=== PATIENT | male | born 1965 | race Caucasian/White ===

== ENCOUNTER 2020-10-19 18:36 | Emergency (ER) | payer OTHER, MEDICAID, SELFPAY ==
[2020-10-19 18:51] VITALS: BP 142/80; PULSE 100; RESP 16; TEMP 35.9; O2SAT 96; BMI 33.9
[2020-10-19 20:09] LABS: Bacteria Urine None Seen; RBC Urine None Seen (0-5/HPF); WBC Urine None Seen (0-5/HPF)
[2020-10-19 20:11] LABS: Appearance Urine UA CLEAR; Bilirubin Urine UA NEGATIVE (NEGATIVE); Color Urine UA YELLOW; Glucose Urine UA NEGATIVE (Negative); Ketones Urine UA NEGATIVE (NEGATIVE); Leukocyte Esterase Urine UA NEGATIVE (NEGATIVE); Nitrite Urine UA NEGATIVE (Negative); Occult Blood Urine UA TRACE-LYSED (Negative); Protein Urine UA NEGATIVE (Negative); Specific Gravity Urine UA 1.025 (1.000-1.035); Urobilinogen Urine UA 0.2 E.U./dL (0.2)
[2020-10-19 20:12] LABS: Add Manual Diff / Slide Review NO; Basophils Absolute Auto 100 /uL (0-100); Basophils Percent Auto 0.6 % (0-2); Eosinophils Absolute Auto 200 /uL (0-450); Eosinophils Percent Auto 1.7 % (2-4); Hematocrit 43.3 % (41-53); Hemoglobin 15.2 g/dL (13.5-17.5); Lymphocytes Absolute Auto 3000 /uL (1100-4500); Lymphocytes Percent Auto 30.2 % (25-40); Mean Corpuscular HGB Conc 35.2 % (30-36); Mean Corpuscular Hemoglobin 30.6 PG (26-34); Monocytes Absolute Auto 700 /uL (0-900); Monocytes Percent Auto 6.8 % (3-14); Neutrophils Absolute Auto 6100 /uL (1500-7000); Neutrophils Percent Auto 60.7 % (50-75); Platelet Count 215 X10^3/uL (150-400); Red Blood Cell Count 4.98 X10^6/uL (4.5-5.9); Red Cell Distribution Width 13.4 % (11.6-14.8); White Blood Cell Count 10.1 X10^3/uL (4.5-11.0)
--- NOTE | 2020-10-19 20:12 | ED.PSYCH ---
HPI - Psych General Chief Complaint: Psychiatric Symptoms Stated Complaint: Mental health crisis Time Seen by Provider: 10/19/20 20:03 History of Present Illness HPI Narrative: Patient here voluntarily for suicide ideation and depression. I saw patient in the past 2 weeks for same complaint. I saw him at [facility] for suicide ideation depression. At that time he had argument with his girlfriend and he left their home. Since then he has been homeless. He was sent from [facility] to [facility]. He stated few days and was discharged. He decided to come here to find possible living accommodations but there are none for him he states. He does have mental health outpatient care in [place] once a month. He has no specific plan to hurt himself. Otherwise no recent illness. Review of Systems Review of Systems Narrative: GENERAL: Denies chills, fatigue, malaise, fever, sweats. HEENT: Denies sinus pain, ear pain, sore throat RESPIRATORY: Denies dyspnea, cough CARDIOVASCULAR: Denies chest pain, palpitations GASTROINTESTINAL: Denies nausea, vomiting, abdominal pain : Denies dysuria, frequency, hematuria MUSCULOSKELETAL: denies muscle or bony pain SKIN: Denies rash, skin lesions NEUROLOGIC: Denies weakness, numbness PSYCH: Complaints of anxiety/depression and SI. No HI ROS Unobtainable: All systems reviewed & are unremarkable except as noted in HPI and below Patient History tobacco type: smokeless tobacco Substance Use Type: does not use Exam Narrative Exam Narrative: GENERAL: in no distress, not toxic not dyspneic HEAD: Normocephalic. EYES: Pupils equal round No scleral icterus. No injection no discharge ENT: Mucous membranes moist. NECK: Trachea midline. CARDIOVASCULAR: Regular rate and rhythm without murmurs RESPIRATORY: Clear to auscultation. Breath sounds equal bilaterally. No wheezes, rales, or rhonchi. GASTROINTESTINAL: Abdomen soft, non-tender EXTREMITIES: No gross deformities. BACK: No flank tenderness. NEURO: AOx4. SKIN: Warm and dry PSYCH: Moderatelyanxious, is cooperative, has SI but no plan. No HI. No hallucinations. Slightly depressed. No pressured speech. Has slight flat affect Initial Vital Signs Initial Vital Signs: Vital Signs Temperature 96.6 F L 10/19/20 18:51 Pulse Rate 100 H 10/19/20 18:51 Respiratory Rate 16 10/19/20 18:51 Blood Pressure 142/80 H 10/19/20 18:51 Pulse Oximetry 96 10/19/20 18:51 Course Course Course Narrative: 2:42 a.m.. No new issues. Patient resting comfortably. Still waiting call back from [facility] for acceptance Orders Ordered: ED Orders 10/19/20 18:49 Acetaminophen Stat Complete Blood Count AUTO DIFF Stat Comprehensive Metabolic Panel Stat Ethanol (ETOH) Stat Free T4, Direct Thyroxine Stat Salicylate Stat Thyroid Stimulating Hormone Stat Urinalysis and Microscopic Stat Urine Drug Screen, Rapid Stat 10/19/20 19:33 COVID19 - ADMIT (DATE NIGHT SITTER swab/PCR) Stat Reevaluation(s) Reevaluation #1: Spoke with patient regarding response from [facility]. At this time he feels much better and has no suicidal ideations. Less anxious. He does desire discharge Time: 06:08 Reevaluation #2: [facility] has responded to our request and inform us that he does not qualify for inpatient care but can follow-up as outpatient. Patient already does have outpatient care. Time: 05:46 Vital Signs Vital signs: Vital Signs - 8 hr 10/19/20 18:51 Temperature 96.6 F L Pulse Rate 100 H Respiratory Rate 16 Blood Pressure 142/80 H Pulse Oximetry 96 MDM - Psych Differential Diagnosis Differential diagnosis: Likely suicidal ideation, depression and acute anxiety Lab Data Result diagrams: 10/19/20 18:49 10/19/20 18:49 Labs: Lab Results 10/19/20 10/19/20 10/19/20 Range/Units 18:49 18:49 18:49 WBC 10.1 (4.5-11.0) X10^3/uL RBC 4.98 (4.5-5.9) X10^6/uL Hgb 15.2 (13.5-17.5) g/dL Hct 43.3 (41-53) % MCV 87.0 (80-100) fL MCH 30.6 (26-34) PG MCHC 35.2 (30-36) % RDW 13.4 (11.6-14.8) % Plt Count 215 (150-400) X10^3/uL Neut % (Auto) 60.7 (50-75) % Lymph % (Auto) 30.2 (25-40) % Saline % (Auto) 6.8 (3-14) % Eos % (Auto) 1.7 L (2-4) % Baso % (Auto) 0.6 (0-2) % Neut # (Auto) 6100 (7295-9496) /uL Lymph # (Auto) 3000 (9336-7074) /uL Saline # (Auto) 700 (0-900) /uL Eos # (Auto) 200 (0-450) /uL Baso # (Auto) 100 (0-100) /uL Sodium 140 (137-145) mmol/L Potassium 3.5 (3.4-5.1) mmol/L Chloride 99 (98-107) mmol/L Carbon Dioxide 29 (22-32) mmol/L BUN 21 H (9-20) mg/dL Creatinine 1.23 (0.66-1.25) mg/dL Estimated GFR > 60.0 (>60) mL/min BUN/Creatinine Ratio 17.1 (6-22) Glucose 109 H (70-100) mg/dL Calcium 10.1 (8.4-10.2) mg/dL Total Bilirubin 0.8 (0.2-1.3) mg/dL AST 29 (17-59) IU/L ALT 18 (<50) IU/L Alkaline Phosphatase 63 (38-126) U/L Total Protein 9.0 H (6.3-8.2) g/dL Albumin 5.0 (3.5-5.0) g/dL Globulin 4.0 (1.7-4.1) g/dL Albumin/Globulin Ratio 1.3 (1.0-2.8) TSH 5.77 H (0.47-4.68) uIU/mL Free T4 1.07 (0.78-2.19) ng/dL Urine Color Urine Appearance Urine pH (4.5-8.0) Ur Specific Irving (1.000-1.035) Urine Protein (Negative) Urine Glucose (UA) (Negative) g/dL Urine Ketones (NEGATIVE) Urine Occult Blood (Negative) Urine Nitrate (Negative) Urine Bilirubin (NEGATIVE) Urine Urobilinogen (0.2) E.U./dL Ur Leukocyte Esterase (NEGATIVE) Urine RBC (0-5/HPF) Urine WBC (0-5/HPF) Amorphous Sediment Urine Bacteria (None) Ur Culture Indicated? Salicylates < 1.0 (<20) mg/dL U Opiates 300ng/mL cut (Negative) Ur Oxycodone Screen (Negative) Urine Methadone Screen (Negative) Acetaminophen < 10 L (10-30) ug/mL Ur Barbiturates Screen (Negative) U Tricyclic Antidepress (Negative) Ur Phencyclidine Scrn (Negative) Ur Amphetamines Screen (Negative) U Methamphetamines Scrn (Negative) Ur MDMA Scrn (Ecstasy) (Negative) U Benzodiazepines Scrn (Negative) Urine Cocaine Screen (Negative) U Marijuana (THC) Screen (Negative) Ethyl Alcohol < 10 ( - 10) mg/dL SARS-CoV-2 (PCR) (Negative) 10/19/20 10/19/20 10/19/20 Range/Units 18:49 18:49 19:33 WBC (4.5-11.0) X10^3/uL RBC (4.5-5.9) X10^6/uL Hgb (13.5-17.5) g/dL Hct (41-53) % MCV (80-100) fL MCH (26-34) PG MCHC (30-36) % RDW (11.6-14.8) % Plt Count (150-400) X10^3/uL Neut % (Auto) (50-75) % Lymph % (Auto) (25-40) % Saline % (Auto) (3-14) % Eos % (Auto) (2-4) % Baso % (Auto) (0-2) % Neut # (Auto) (5656-3173) /uL Lymph # (Auto) (5559-3068) /uL Saline # (Auto) (0-900) /uL Eos # (Auto) (0-450) /uL Baso # (Auto) (0-100) /uL Sodium (137-145) mmol/L Potassium (3.4-5.1) mmol/L Chloride (98-107) mmol/L Carbon Dioxide (22-32) mmol/L BUN (9-20) mg/dL Creatinine (0.66-1.25) mg/dL Estimated GFR (>60) mL/min BUN/Creatinine Ratio (6-22) Glucose (70-100) mg/dL Calcium (8.4-10.2) mg/dL Total Bilirubin (0.2-1.3) mg/dL AST (17-59) IU/L ALT (<50) IU/L Alkaline Phosphatase (38-126) U/L Total Protein (6.3-8.2) g/dL Albumin (3.5-5.0) g/dL Globulin (1.7-4.1) g/dL Albumin/Globulin Ratio (1.0-2.8) TSH (0.47-4.68) uIU/mL Free T4 (0.78-2.19) ng/dL Urine Color Yellow Urine Appearance Clear Urine pH 5.0 (4.5-8.0) Ur Specific Irving 1.025 (1.000-1.035) Urine Protein Negative (Negative) Urine Glucose (UA) Negative (Negative) g/dL Urine Ketones Negative (NEGATIVE) Urine Occult Blood Trace-lysed (Negative) Urine Nitrate Negative (Negative) Urine Bilirubin Negative (NEGATIVE) Urine Urobilinogen 0.2 (0.2) E.U./dL Ur Leukocyte Esterase Negative (NEGATIVE) Urine RBC None seen (0-5/HPF) Urine WBC None seen (0-5/HPF) Amorphous Sediment 2+ Urine Bacteria None seen (None) Ur Culture Indicated? Cult not indicated Salicylates (<20) mg/dL U Opiates 300ng/mL cut Negative (Negative) Ur Oxycodone Screen Negative (Negative) Urine Methadone Screen Negative (Negative) Acetaminophen (10-30) ug/mL Ur Barbiturates Screen Negative (Negative) U Tricyclic Antidepress Negative (Negative) Ur Phencyclidine Scrn Negative (Negative) Ur Amphetamines Screen Negative (Negative) U Methamphetamines Scrn Negative (Negative) Ur MDMA Scrn (Ecstasy) Negative (Negative) U Benzodiazepines Scrn Negative (Negative) Urine Cocaine Screen Negative (Negative) U Marijuana (THC) Screen Positive H (Negative) Ethyl Alcohol ( - 10) mg/dL SARS-CoV-2 (PCR) Negative (Negative) MDM Narrative Medical decision making narrative: Patient been evaluated by social Work as well as referred to [facility] but does not qualify for inpatient care. Patient has been cooperative during course of stay. Reviewed with patient response from behavioral health/[facility]. Patient no longer suicidal ideations. Feels much better after resting here. He does desire a patient care with [facility] [facility] [employer] [facility]. Phone number given to him to call. He does have a cellphone. Discharge Plan Departure Patient Disposition: Home Clinical Impression: Acute anxiety Activity Restrictions/Additional Instructions: Return if worsening questions or concerns. Call [facility] today for outpatient care. Their phone number is [phone]. Continue your home medications.
[2020-10-19 20:16] LABS: UR Morphine/Opiate cutoff 300 Negative (Negative); Ur Creatinine Normal (Normal); Ur Specific Gravity Normal (Normal); Urine Amphetamines Negative (Negative); Urine Barbiturates Negative (Negative); Urine Benzodiazepines Negative (Negative); Urine Cocaine Negative (Negative); Urine MDMA Negative (Negative); Urine Methadone Negative (Negative); Urine Methamphetamines Negative (Negative); Urine Oxycodone Negative (Negative); Urine Phencyclidine Negative (Negative); Urine Tetrahydrocannabinol Positive (Negative); Urine Tricyclic Antidepressant Negative (Negative); Urine pH Normal (Normal)
[2020-10-19 20:25] LABS: Amorphous Sediment Urine 2+; Culture Indicated Urine Cult Not Indicated
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
[2020-10-19 20:51] LABS: Acetaminophen < 10 ug/mL (10-30); Alanine Aminotransferase 18 IU/L (<50); Albumin Globulin Ratio 1.3 (1.0-2.8); Alkaline Phosphatase 63 U/L (38-126); Aspartate Aminotransferase 29 IU/L (17-59); BUN Creatinine Ratio 17.1 (6-22); Bilirubin Total 0.8 mg/dL (0.2-1.3); Blood Urea Nitrogen 21 mg/dL (9-20); Calcium 10.1 mg/dL (8.4-10.2); Carbon Dioxide 29 mmol/L (22-32); Chloride 99 mmol/L (98-107); Estimated Glomerular Filt Rate > 60.0 mL/min (>60); Ethanol (ETOH) < 10 mg/dL; Glucose 109 mg/dL (70-100); HEMOLYSIS < 15 (0-50); Potassium 3.5 mmol/L (3.4-5.1); Salicylate < 1.0 mg/dL (<20); Sodium 140 mmol/L (137-145)
[2020-10-19 21:23] LABS: Free T4, Direct Thyroxine 1.07 ng/dL (0.78-2.19)
[2020-10-19 21:31] LABS: COVID19 - ADMIT (NP swab/PCR) Negative (Negative)
[2020-10-19 21:36] LABS: Thyroid Stimulating Hormone 5.77 uIU/mL (0.47-4.68)
--- NOTE | 2020-10-20 03:26 | PC.NURSE ---
Called to check on pt's status to [facility]. Spoke with Karen who stated they needed the lab results. Faxed the lab results and am waiting for a reply
--- NOTE | 2020-10-20 05:26 | PC.NURSE ---
Received call from Darrick at [facility]. Pt declined at this time due to not meeting in patient criteria. states can have access to their out patient resources.
[2020-10-20 07:24] VITALS: BP 120/87; PULSE 78; RESP 16; O2SAT 98
== END 2020-10-20 07:25 | disposition home or self-care (01) ==
PROVIDERS: Emergency Provider Emergency Medicine; Family Provider Internal Medicine Nephrology
DX: R45.851 Suicidal ideations (principal); F41.9 Anxiety disorder, unspecified; F32.9 Major depressive disorder, single episode, unspecified; Z20.822 Contact with and (suspected) exposure to COVID-19
CPT/HCPCS: 36415; 80053; 80305; 80320; 80329; 81001; 84439; 84443; 85025; 87635; 99284; C9803; G0480

== ENCOUNTER 2021-08-25 15:20 | Emergency (ER) | payer MEDICARE, MEDICAID, SELFPAY ==
[2021-08-25 15:31] VITALS: BP 152/85; PULSE 86; RESP 18; TEMP 36.6; O2SAT 96; BMI 33.9
--- NOTE | 2021-08-25 15:50 | PC.NURSE ---
Patient belongings are in bags in the ER locked drawer including clothes, valuables, crocks shoes, hoodie, and backpack with locked zippers. Patient changed into green scrubs and in the room calm and cooperative.
[2021-08-25 16:19] LABS: Acetaminophen < 10 ug/mL (10-30); Alanine Aminotransferase 21 IU/L (<50); Albumin 4.7 g/dL (3.5-5.0); Albumin Globulin Ratio 1.1 (1.0-2.8); Alkaline Phosphatase 86 U/L (38-126); Aspartate Aminotransferase 55 IU/L (17-59); BUN Creatinine Ratio 15.1 (6-22); Bilirubin Total 1.4 mg/dL (0.2-1.3); Blood Urea Nitrogen 16 mg/dL (9-20); Calcium 9.5 mg/dL (8.4-10.2); Carbon Dioxide 27 mmol/L (22-32); Chloride 98 mmol/L (98-107); Estimated Glomerular Filt Rate > 60 mL/min (>60); Ethanol (ETOH) < 10 mg/dL; Globulin 4.1 g/dL (1.7-4.1); Glucose 99 mg/dL (70-100); HEMOLYSIS 41 (0-50); Potassium 3.6 mmol/L (3.4-5.1); Salicylate < 1.0 mg/dL (<20); Sodium 140 mmol/L (137-145); Total Protein 8.8 g/dL (6.3-8.2)
[2021-08-25 16:22] LABS: Add Manual Diff / Slide Review NO; Basophils Absolute Auto 100 /uL (0-100); Basophils Percent Auto 0.9 % (0-2); Eosinophils Absolute Auto 100 /uL (0-450); Eosinophils Percent Auto 0.7 % (2-4); Hematocrit 46.2 % (41-53); Lymphocytes Absolute Auto 2100 /uL (1100-4500); Lymphocytes Percent Auto 21.1 % (25-40); Mean Corpuscular HGB Conc 34.6 % (30-36); Mean Corpuscular Volume 86.6 fL (80-100); Monocytes Absolute Auto 500 /uL (0-900); Monocytes Percent Auto 5.3 % (3-14); Neutrophils Absolute Auto 7200 /uL (1500-7000); Platelet Count 268 X10^3/uL (150-400); Red Blood Cell Count 5.33 X10^6/uL (4.5-5.9); Red Cell Distribution Width 13.5 % (11.6-14.8); White Blood Cell Count 9.9 X10^3/uL (4.5-11.0)
--- NOTE | 2021-08-25 16:31 | PC.NURSE ---
Sitting and talking with social work supervisor.
[2021-08-25 16:50] LABS: COVID19 -Nasal RAPID Negative (Negative)
[2021-08-25 17:02] LABS: Thyroid Stimulating Hormone 3.26 uIU/mL (0.47-4.68)
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
[2021-08-25 17:26] LABS: Ur Creatinine Normal (Normal); Ur Specific Gravity Normal (Normal); Urine pH Normal (Normal)
[2021-08-25 17:27] LABS: UR Morphine/Opiate cutoff 300 Negative (Negative); Urine Amphetamines Negative (Negative); Urine Barbiturates Negative (Negative); Urine Benzodiazepines Positive (Negative); Urine Cocaine Negative (Negative); Urine Methamphetamines Positive (Negative); Urine Tetrahydrocannabinol Positive (Negative)
[2021-08-25 17:28] LABS: Urine MDMA Negative (Negative); Urine Methadone Negative (Negative); Urine Oxycodone Negative (Negative); Urine Phencyclidine Negative (Negative); Urine Tricyclic Antidepressant Negative (Negative)
--- NOTE | 2021-08-25 18:16 | PC.NURSE ---
Pt calm and lying down, speaking to
--- NOTE | 2021-08-25 18:19 | ED.PSYCH ---
HPI - Psych General Chief Complaint: Psychiatric Symptoms Stated Complaint: SI Time Seen by Provider: 08/25/21 18:03 Source: patient Mode of arrival: other (Police) Limitations: no limitations History of Present Illness HPI Narrative: 56-year-old male. History drug abuse and alcohol abuse also PTSD and depression. Receives his mental health medications by his primary doctor. Does not currently have a mental health professional that he sees on a regular basis. Was recently discharged from [facility] mental health facility. He states that he left on his own. He was there voluntarily after going to the emergency department for suicidal ideations. He stated that he left voluntarily because he was ?strapped down ?he said that they took his medications away from him and otherwise had a very poor experience although he went going to specific details. Today he was brought in by police after he was stating suicidal thoughts all in 1 of the local [place]. He is here voluntarily. He is seeking voluntary mental health treatment. He is asking for hydroxyzine to help him sleep and also calmed down. He denies any drug or alcohol abuse. Did smoke marijuana after his discharge earlier today and his arrival here to the emergency department. He has made specific statements about a plan to include jumping off a bridge or hitting himself in the head with a rock or drowning himself. Related Data Allergies Allergy/AdvReac Type Severity Reaction Status Date / Time No Known Drug Allergies Allergy Verified 08/25/21 18:35 Review of Systems Cardiovascular Comments: Denies chest pain Respiratory Comments: Denies shortness of breath Gastrointestinal Comments: Denies abdominal pain nausea vomiting Musculoskeletal Comments: , muscle or joint pain Psychiatric Psychiatric: Reports system reviewed and no additional complaints, except as documented Hematologic/Lymphatic On Anticoagulants: No Patient History Medical History Alcohol abuse Depression Drug abuse Personality disorder, unspecified PTSD (post-traumatic stress disorder) Suicidal ideation Social History Smoking Status: Current every day smoker Smoking Status: Current every day smoker tobacco type: smokeless tobacco Substance Use Type: does not use Exam Initial Vital Signs Initial Vital Signs: Vital Signs Temperature 97.9 F 08/25/21 15:31 Pulse Rate 86 08/25/21 15:31 Respiratory Rate 18 08/25/21 15:31 Blood Pressure 152/85 H 08/25/21 15:31 Pulse Oximetry 96 08/25/21 15:31 Oxygen Delivery Method 08/25/21 15:31 HENOH Head: normal to inspection and normocephalic Resp Effort & Inspection: normal respiratory effort Auscultation: clear to auscultation bilaterally Cardio Rate: regular rate Rhythm: regular rhythm GI Palpation: soft Percussion: normal to percussion Skin General: no rashes or lesions noted Neuro General: patient alert, patient awake, patient oriented x3 and moves all extremities Extrem General: normal to inspection and capillary refill normal Psych Other: Calm, cooperative, does endorse suicidal ideation. Flat affect. Scores GCS Kash coma scale eye opening: Spontaneous Kash coma scale verbal response: Orientated [place] coma scale motor response: Obey commands Kash coma scale total score: 15 Course Orders Ordered: Discontinued Medications Hydroxyzine Pamoate (Hydroxyzine Pamoate 25 Mg Capsule) 25 mg PO NOW ONE Stop: 08/25/21 18:20 Last Admin: 08/25/21 18:45 Dose: 25 mg Documented By: CHARLES Hydroxyzine Pamoate (Hydroxyzine Pamoate 25 Mg Capsule) 25 mg PO NOW ONE Stop: 08/26/21 02:22 Last Admin: 08/26/21 02:24 Dose: 25 mg Documented By: BIN Vital Signs Vital signs: Vital Signs - 8 hr 08/25/21 22:50 Temperature 97.7 F Pulse Rate 83 Respiratory Rate 18 Blood Pressure [Right Arm] 150/84 H Pulse Oximetry 97 Oxygen Delivery Method Room Air MDM - Psych Lab Data Attestation: I reviewed the patient's lab results. Result diagrams: 08/25/21 15:59 08/25/21 15:59 Labs: Lab Results 08/25/21 08/25/21 08/25/21 Range/Units 15:59 15:59 15:59 WBC 9.9 (4.5-11.0) X10^3/uL RBC 5.33 (4.5-5.9) X10^6/uL Hgb 16.0 (13.5-17.5) g/dL Hct 46.2 (41-53) % MCV 86.6 (80-100) fL MCH 30.0 (26-34) PG MCHC 34.6 (30-36) % RDW 13.5 (11.6-14.8) % Plt Count 268 (150-400) X10^3/uL Neut % (Auto) 72.0 (50-75) % Lymph % (Auto) 21.1 L (25-40) % [place] % (Auto) 5.3 (3-14) % Eos % (Auto) 0.7 L (2-4) % Baso % (Auto) 0.9 (0-2) % Neut # (Auto) 7200 H (5018-0880) /uL Lymph # (Auto) 2100 (8294-5609) /uL [place] # (Auto) 500 (0-900) /uL Eos # (Auto) 100 (0-450) /uL Baso # (Auto) 100 (0-100) /uL Sodium 140 (137-145) mmol/L Potassium 3.6 (3.4-5.1) mmol/L Chloride 98 (98-107) mmol/L Carbon Dioxide 27 (22-32) mmol/L BUN 16 (9-20) mg/dL Creatinine 1.06 (0.66-1.25) mg/dL Estimated GFR > 60 (>60) mL/min BUN/Creatinine Ratio 15.1 (6-22) Glucose 99 (70-100) mg/dL Calcium 9.5 (8.4-10.2) mg/dL Total Bilirubin 1.4 H (0.2-1.3) mg/dL AST 55 (17-59) IU/L ALT 21 (<50) IU/L Alkaline Phosphatase 86 (38-126) U/L Total Protein 8.8 H (6.3-8.2) g/dL Albumin 4.7 (3.5-5.0) g/dL Globulin 4.1 (1.7-4.1) g/dL Albumin/Globulin Ratio 1.1 (1.0-2.8) TSH 3.26 (0.47-4.68) uIU/mL Free T4 1.10 (0.78-2.19) ng/dL Salicylates < 1.0 (<20) mg/dL U Opiates 300ng/mL cut (Negative) Ur Oxycodone Screen (Negative) Urine Methadone Screen (Negative) Acetaminophen < 10 (10-30) ug/mL Ur Barbiturates Screen (Negative) U Tricyclic Antidepress (Negative) Ur Phencyclidine Scrn (Negative) Ur Amphetamines Screen (Negative) U Methamphetamines Scrn (Negative) Ur MDMA Scrn (Ecstasy) (Negative) U Benzodiazepines Scrn (Negative) Urine Cocaine Screen (Negative) U Marijuana (THC) Screen (Negative) Ethyl Alcohol < 10 ( - 10) mg/dL SARS-CoV-2 (PCR) (Negative) 08/25/21 08/25/21 Range/Units 16:11 16:48 WBC (4.5-11.0) X10^3/uL RBC (4.5-5.9) X10^6/uL Hgb (13.5-17.5) g/dL Hct (41-53) % MCV (80-100) fL MCH (26-34) PG MCHC (30-36) % RDW (11.6-14.8) % Plt Count (150-400) X10^3/uL Neut % (Auto) (50-75) % Lymph % (Auto) (25-40) % [place] % (Auto) (3-14) % Eos % (Auto) (2-4) % Baso % (Auto) (0-2) % Neut # (Auto) (2002-4168) /uL Lymph # (Auto) (8754-3082) /uL [place] # (Auto) (0-900) /uL Eos # (Auto) (0-450) /uL Baso # (Auto) (0-100) /uL Sodium (137-145) mmol/L Potassium (3.4-5.1) mmol/L Chloride (98-107) mmol/L Carbon Dioxide (22-32) mmol/L BUN (9-20) mg/dL Creatinine (0.66-1.25) mg/dL Estimated GFR (>60) mL/min BUN/Creatinine Ratio (6-22) Glucose (70-100) mg/dL Calcium (8.4-10.2) mg/dL Total Bilirubin (0.2-1.3) mg/dL AST (17-59) IU/L ALT (<50) IU/L Alkaline Phosphatase (38-126) U/L Total Protein (6.3-8.2) g/dL Albumin (3.5-5.0) g/dL Globulin (1.7-4.1) g/dL Albumin/Globulin Ratio (1.0-2.8) TSH (0.47-4.68) uIU/mL Free T4 (0.78-2.19) ng/dL Salicylates (<20) mg/dL U Opiates 300ng/mL cut Negative (Negative) Ur Oxycodone Screen Negative (Negative) Urine Methadone Screen Negative (Negative) Acetaminophen (10-30) ug/mL Ur Barbiturates Screen Negative (Negative) U Tricyclic Antidepress Negative (Negative) Ur Phencyclidine Scrn Negative (Negative) Ur Amphetamines Screen Negative (Negative) U Methamphetamines Scrn Positive H (Negative) Ur MDMA Scrn (Ecstasy) Negative (Negative) U Benzodiazepines Scrn Positive H (Negative) Urine Cocaine Screen Negative (Negative) U Marijuana (THC) Screen Positive H (Negative) Ethyl Alcohol ( - 10) mg/dL SARS-CoV-2 (PCR) Negative (Negative) Urine Dip Bedside Urine Glucose Negative Bedside Urine Bilirubin - Negative Bedside Urine Ketone - Negative Urine Specific [place] 1.025 Bedside Urine Occult Blood +/- Bedside Urine pH 6.0 Bedside Urine Protein + 30 Bedside Urine Urobilinogen - Negative Bedside Urine Nitrite - Negative Bedside Urine Leukocytes - Negative Esterase ECG Data Attestation: I personally reviewed and interpreted this ECG as follows: Prior ECG tracings: not available for review Interpretation: Sinus rhythm Ventricular rate 87 Normal axis Normal QRS Normal QTC No ST T wave changes MDM Narrative Medical decision making narrative: Patient is alert oriented x3. Not clinically intoxicated. Is here voluntarily. Endorses suicidal ideation. Has been admitted to the hospital in the past voluntarily. He is currently voluntary and would like placement for his symptoms. Afebrile. Patient is medically cleared. Social work has evaluated the patient. Voluntary placement found. Patient is stable for transport Discharge Plan Departure Patient Disposition: Xfer Psychiatric Hosp Clinical Impression: Suicidal ideation, Depression Referrals: Caro Richards PA-C [Primary Care Provider] -
[2021-08-25 18:26] VITALS: BP 132/87; PULSE 82; RESP 18; TEMP 37.1; O2SAT 97
[2021-08-25] MEDS: hydrOXYzine pamoate 25 MG CAPSULE PO (18:45)
--- NOTE | 2021-08-25 18:47 | CM.SWNOTE ---
Addendum entered by Laura Gleason 08/25/21 20:23: FACTORY MANAGER Note FACTORY MANAGER receives call from [facility] intake Chad who reports that patient has been accepted for tomorrow morning at 0730. Accepting provider is MARIYA Knight. [employer] to set up transportation for patient. FACTORY MANAGER reviews the above with patient who indicates agreement and understanding. Plan: Patient to transfer to [facility] tomorrow morning for voluntary BH inpatient bed. JOSE ROBERTO Haynes Original Note: FACTORY MANAGER Note FACTORY MANAGER calls [facility] for voluntary bed census, it is reported that [facility], [facility], [facility] have beds and that [facility] 1 [facility] (60 y/o +). FACTORY MANAGER calls [facility] intake and it is reported that they can review patient, FACTORY MANAGER faxes clinicals for review. FACTORY MANAGER calls [facility] and intake is not available to answer phone but bathhouse attendant recommends faxing clinicals, FACTORY MANAGER faxes clinicals for review. FACTORY MANAGER calls [facility] intake, it is reported that they have beds and can review patient, FACTORY MANAGER faxes clinicals for review. FACTORY MANAGER does not call [facility] due to patient's recent d/c from facility. Plan: FACTORY MANAGER to continue to seek voluntary BH inpatient bed for patient. JOSE ROBERTO Haynes
--- NOTE | 2021-08-25 20:00 | PC.NURSE ---
Addendum entered by Breanne Lyon CNA 08/26/21 03:22: ANIMAL SHELTER SUPERVISOR note: patient got up, went to sit inn chair, complained he was uncomfortable, tried to sleep in chair for a few minutes. Complained he wasn't comfortable again, and got back onto the mattress. Patient is listening to the audiobook on his phone for comfort. Addendum entered by Breanne Lyon CNA 08/26/21 01:35: ANIMAL SHELTER SUPERVISOR note: patient still laying on mattress, sleeping, listening to the audiobook on phone for comfort. Addendum entered by Breanne Lyon CNA 08/25/21 22:00: Patient is laying on mattress (which is on the floor), sleeping, listening to audiobook on phone for comfort. Addendum entered by Breanne Lyon CNA 08/25/21 20:31: ANIMAL SHELTER SUPERVISOR note: patient attempting to sleep, patient is rolling over frequently while trying to sleep, and listening to audiobook. Patient resting on his side. Original Note: SAUL note: patient is struggling to sleep, moved to the recliner, wasn't comfortable, wasn't comfortable in bed, and requested the mattress on the floor. Moved mattress onto floor and moved gurney out of room. Patient is visible to ANIMAL SHELTER SUPERVISOR, requested phone. Patient on mattress trying to rest.
[2021-08-25 22:50] VITALS: BP 150/84; PULSE 83; RESP 18; TEMP 36.5; O2SAT 97
[2021-08-26] MEDS: hydrOXYzine pamoate 25 MG CAPSULE PO (02:24)
[2021-08-26 05:20] VITALS: BP 148/92; PULSE 87; RESP 18; O2SAT 97
== END 2021-08-26 06:25 ==
PROVIDERS: Emergency Medicine; Emergency Provider Emergency Medicine; Family Provider Internal Medicine Nephrology; PCP Physician Assistant; Referring Provider Physician Assistant
DX: R45.851 Suicidal ideations (principal); F32.9 Major depressive disorder, single episode, unspecified; Z20.822 Contact with and (suspected) exposure to COVID-19; R03.0 Elevated blood-pressure reading, without diagnosis of hypertension
CPT/HCPCS: 36415; 80053; 80305; 80320; 80329; 81003; 84439; 84443; 85025; 87635; 93005; 93010; 99284; C9803; G0480

== ENCOUNTER 2021-10-24 19:56 | Emergency (ER) | payer MEDICARE, MEDICAID, SELFPAY ==
[2021-10-24 20:12] VITALS: BP 142/77; PULSE 92; RESP 17; TEMP 37.1; O2SAT 98
[2021-10-24 21:09] LABS: Add Manual Diff / Slide Review NO; Basophils Absolute Auto 100 /uL (0-100); Basophils Percent Auto 0.5 % (0-2); Eosinophils Absolute Auto 200 /uL (0-450); Hematocrit 46.3 % (41-53); Hemoglobin 16.4 g/dL (13.5-17.5); Lymphocytes Absolute Auto 3500 /uL (1100-4500); Lymphocytes Percent Auto 29.6 % (25-40); Mean Corpuscular HGB Conc 35.4 % (30-36); Mean Corpuscular Hemoglobin 30.4 PG (26-34); Mean Corpuscular Volume 85.9 fL (80-100); Monocytes Absolute Auto 900 /uL (0-900); Monocytes Percent Auto 7.2 % (3-14); Neutrophils Absolute Auto 7200 /uL (1500-7000); Neutrophils Percent Auto 60.7 % (50-75); Platelet Count 301 X10^3/uL (150-400); Red Blood Cell Count 5.39 X10^6/uL (4.5-5.9); Red Cell Distribution Width 13.4 % (11.6-14.8); White Blood Cell Count 11.9 X10^3/uL (4.5-11.0)
[2021-10-24 21:19] LABS: Acetaminophen < 10 ug/mL (10-30); Alanine Aminotransferase 17 IU/L (<50); Albumin 4.8 g/dL (3.5-5.0); Albumin Globulin Ratio 1.1 (1.0-2.8); Alkaline Phosphatase 74 U/L (38-126); Aspartate Aminotransferase 22 IU/L (17-59); BUN Creatinine Ratio 17.3 (6-22); Bilirubin Total 0.6 mg/dL (0.2-1.3); Blood Urea Nitrogen 22 mg/dL (9-20); Carbon Dioxide 27 mmol/L (22-32); Chloride 100 mmol/L (98-107); Estimated Glomerular Filt Rate > 60 mL/min (>60); Ethanol (ETOH) < 10 mg/dL; Globulin 4.4 g/dL (1.7-4.1); Glucose 130 mg/dL (70-100); Potassium 4.1 mmol/L (3.4-5.1); Salicylate < 1.0 mg/dL (<20); Sodium 141 mmol/L (137-145); Total Protein 9.2 g/dL (6.3-8.2)
[2021-10-24 21:28] LABS: RBC Urine None Seen (0-5/HPF); Squamous Epithelial Cell Urine 0-1 /HPF (0-5/HPF); WBC Urine 0-1/HPF (0-5/HPF)
[2021-10-24 21:29] LABS: Bacteria Urine None Seen; Culture Indicated Urine Cult Not Indicated; Hyaline Casts Urine 0-1/LPF
[2021-10-24 21:30] LABS: Ur Creatinine 20 (Normal); Ur Specific Gravity >1.025 (Normal); Urine pH 5 (Normal)
[2021-10-24 21:31] LABS: UR Morphine/Opiate cutoff 300 Negative (Negative); Urine Amphetamines Negative (Negative); Urine Barbiturates Negative (Negative); Urine Benzodiazepines Negative (Negative); Urine Cocaine Negative (Negative); Urine MDMA Negative (Negative); Urine Methadone Negative (Negative); Urine Methamphetamines Negative (Negative); Urine Oxycodone Negative (Negative); Urine Phencyclidine Negative (Negative); Urine Tetrahydrocannabinol Positive (Negative); Urine Tricyclic Antidepressant Negative (Negative)
[2021-10-24 21:37] LABS: Free T4, Direct Thyroxine 0.93 ng/dL (0.78-2.19)
--- NOTE | 2021-10-24 21:43 | ED_ITS ---
HPI - Psych General Chief Complaint: Psychiatric Symptoms Stated Complaint: SI Time Seen by Provider: 10/24/21 21:22 Source: patient Mode of arrival: Ambulatory Limitations: no limitations History of Present Illness HPI Narrative: Patient is a 56-year-old male. Does have a history of alcohol abuse drug abuse. Also has a history of anxiety depression and suicidal ideation. States he has been sober for several months now. Does take escitalopram that is prescribed by his primary doctor. Has been admitted to the hospital in the past for suicidal ideation most recent within the past several months. He does take hydroxyzine at night to help him sleep. He states that for the past couple days and especially today he had increasing thoughts of hurting himself. Has not tried to hurt himself. He arrived emergency department by himself voluntarily seeking inpatient treatment. He was not especially specific as to what caused the deterioration over the past couple days except that he states that he is rec ently finding out what other people ?were doing to me ?while he was doing drugs and alcohol. Related Data Home Medications Medication Instructions Recorded Confirmed amlodipine 10 mg tablet 10 mg PO DAILY 10/24/21 10/24/21 escitalopram oxalate 10 mg tablet 20 mg PO DAILY 10/24/21 10/24/21 hydroxyzine HCl 50 mg tablet 50 mg PO DAILY 10/24/21 10/24/21 Allergies Allergy/AdvReac Type Severity Reaction Status Date / Time No Known Drug Allergies Allergy Verified 10/24/21 20:23 Review of Systems Constitutional Constitutional: Denies fever(s) and Denies headache(s) ENT Ears, Nose, Mouth, and Throat: Denies headache(s) Cardiovascular Cardiovascular: Denies chest pain and Denies dyspnea Respiratory Respiratory: Denies dyspnea Gastrointestinal Gastrointestinal: Denies abdominal pain Musculoskeletal Musculoskeletal: Reports system reviewed and no additional complaints, except as documented Integumentary/Breasts Skin/Breast: Reports system reviewed and no additional complaints, except as documented Neurologic Neurologic: Denies headache(s) Hematologic/Lymphatic On Anticoagulants: No Patient History Medical History Alcohol abuse Depression Drug abuse Personality disorder, unspecified PTSD (post-traumatic stress disorder) Suicidal ideation Social History Smoking Status: Former smoker Smoking Status: Former smoker tobacco type: smokeless tobacco alcohol intake frequency: other Substance Use Type: does not use Exam Initial Vital Signs Initial Vital Signs: Vital Signs Temperature 98.7 F 10/24/21 20:12 Pulse Rate 92 H 10/24/21 20:12 Respiratory Rate 17 10/24/21 20:12 Blood Pressure 142/77 H 10/24/21 20:12 Pulse Oximetry 98 10/24/21 20:12 Oxygen Delivery Method 10/24/21 20:12 Const General: cooperative, comfortable and No ill appearing HENWA Head: normal to inspection and normocephalic Resp Effort & Inspection: normal respiratory effort Auscultation: clear to auscultation bilaterally Cardio Rate: regular rate Rhythm: regular rhythm GI Inspection: normal to inspection Palpation: soft and No tender Skin General: no rashes or lesions noted Neuro General: patient alert, patient awake, patient oriented x3 and moves all extremities Extrem General: normal to inspection and capillary refill normal Psych Appearance: grossly normal and well kempt Course Orders Ordered: ED Orders 10/25/21 05:20 COVID19 -Nasal RAPID/Pre-Proc Stat Discontinued Medications Hydroxyzine Pamoate (Hydroxyzine Pamoate 25 Mg Capsule) 100 mg PO NOW ONE Stop: 10/24/21 23:05 Last Admin: 10/24/21 23:12 Dose: 100 mg Documented By: CLIFF Vital Signs Vital signs: Vital Signs - 8 hr 10/24/21 20:12 Temperature 98.7 F Pulse Rate 92 H Respiratory Rate 17 Blood Pressure 142/77 H Pulse Oximetry 98 Oxygen Delivery Method Room Air MDM - Psych Lab Data Attestation: I reviewed the patient's lab results. Result diagrams: 10/24/21 20:52 10/24/21 20:52 Labs: Lab Results 10/24/21 10/24/21 10/24/21 Range/Units 20:52 20:52 20:52 WBC 11.9 H (4.5-11.0) X10^3/uL RBC 5.39 (4.5-5.9) X10^6/uL Hgb 16.4 (13.5-17.5) g/dL Hct 46.3 (41-53) % MCV 85.9 (80-100) fL MCH 30.4 (26-34) PG MCHC 35.4 (30-36) % RDW 13.4 (11.6-14.8) % Plt Count 301 (150-400) X10^3/uL Neut % (Auto) 60.7 (50-75) % Lymph % (Auto) 29.6 (25-40) % [place] % (Auto) 7.2 (3-14) % Eos % (Auto) 2.0 (2-4) % Baso % (Auto) 0.5 (0-2) % Neut # (Auto) 7200 H (4655-9751) /uL Lymph # (Auto) 3500 (3661-7541) /uL [place] # (Auto) 900 (0-900) /uL Eos # (Auto) 200 (0-450) /uL Baso # (Auto) 100 (0-100) /uL Sodium 141 (137-145) mmol/L Potassium 4.1 (3.4-5.1) mmol/L Chloride 100 (98-107) mmol/L Carbon Dioxide 27 (22-32) mmol/L BUN 22 H (9-20) mg/dL Creatinine 1.27 H (0.66-1.25) mg/dL Estimated GFR > 60 (>60) mL/min BUN/Creatinine Ratio 17.3 (6-22) Glucose 130 H (70-100) mg/dL Calcium 10.0 (8.4-10.2) mg/dL Total Bilirubin 0.6 (0.2-1.3) mg/dL AST 22 (17-59) IU/L ALT 17 (<50) IU/L Alkaline Phosphatase 74 (38-126) U/L Total Protein 9.2 H (6.3-8.2) g/dL Albumin 4.8 (3.5-5.0) g/dL Globulin 4.4 H (1.7-4.1) g/dL Albumin/Globulin Ratio 1.1 (1.0-2.8) TSH 10.7 H (0.47-4.68) uIU/mL Free T4 0.93 (0.78-2.19) ng/dL Urine RBC (0-5/HPF) Urine WBC (0-5/HPF) Ur Squamous Epith Cells (0-5/HPF) Urine Bacteria (None) Hyaline Casts (None) Ur Culture Indicated? Salicylates < 1.0 (<20) mg/dL U Opiates 300ng/mL cut (Negative) Ur Oxycodone Screen (Negative) Urine Methadone Screen (Negative) Acetaminophen < 10 (10-30) ug/mL Ur Barbiturates Screen (Negative) U Tricyclic Antidepress (Negative) Ur Phencyclidine Scrn (Negative) Ur Amphetamines Screen (Negative) U Methamphetamines Scrn (Negative) Ur MDMA Scrn (Ecstasy) (Negative) U Benzodiazepines Scrn (Negative) Urine Cocaine Screen (Negative) U Marijuana (THC) Screen (Negative) Ethyl Alcohol < 10 ( - 10) mg/dL SARS-CoV-2 (PCR) (Negative) 10/24/21 10/24/21 10/25/21 Range/Units 21:08 21:20 05:20 WBC (4.5-11.0) X10^3/uL RBC (4.5-5.9) X10^6/uL Hgb (13.5-17.5) g/dL Hct (41-53) % MCV (80-100) fL MCH (26-34) PG MCHC (30-36) % RDW (11.6-14.8) % Plt Count (150-400) X10^3/uL Neut % (Auto) (50-75) % Lymph % (Auto) (25-40) % [place] % (Auto) (3-14) % Eos % (Auto) (2-4) % Baso % (Auto) (0-2) % Neut # (Auto) (1331-8407) /uL Lymph # (Auto) (2985-8599) /uL [place] # (Auto) (0-900) /uL Eos # (Auto) (0-450) /uL Baso # (Auto) (0-100) /uL Sodium (137-145) mmol/L Potassium (3.4-5.1) mmol/L Chloride (98-107) mmol/L Carbon Dioxide (22-32) mmol/L BUN (9-20) mg/dL Creatinine (0.66-1.25) mg/dL Estimated GFR (>60) mL/min BUN/Creatinine Ratio (6-22) Glucose (70-100) mg/dL Calcium (8.4-10.2) mg/dL Total Bilirubin (0.2-1.3) mg/dL AST (17-59) IU/L ALT (<50) IU/L Alkaline Phosphatase (38-126) U/L Total Protein (6.3-8.2) g/dL Albumin (3.5-5.0) g/dL Globulin (1.7-4.1) g/dL Albumin/Globulin Ratio (1.0-2.8) TSH (0.47-4.68) uIU/mL Free T4 (0.78-2.19) ng/dL Urine RBC None seen (0-5/HPF) Urine WBC 0-1/hpf (0-5/HPF) Ur Squamous Epith Cells 0-1 /hpf (0-5/HPF) Urine Bacteria None seen (None) Hyaline Casts 0-1/lpf (None) Ur Culture Indicated? Cult not indicated Salicylates (<20) mg/dL U Opiates 300ng/mL cut Negative (Negative) Ur Oxycodone Screen Negative (Negative) Urine Methadone Screen Negative (Negative) Acetaminophen (10-30) ug/mL Ur Barbiturates Screen Negative (Negative) U Tricyclic Antidepress Negative (Negative) Ur Phencyclidine Scrn Negative (Negative) Ur Amphetamines Screen Negative (Negative) U Methamphetamines Scrn Negative (Negative) Ur MDMA Scrn (Ecstasy) Negative (Negative) U Benzodiazepines Scrn Negative (Negative) Urine Cocaine Screen Negative (Negative) U Marijuana (THC) Screen Positive H (Negative) Ethyl Alcohol ( - 10) mg/dL SARS-CoV-2 (PCR) Negative (Negative) Urine Dip Bedside Urine Glucose Negative Bedside Urine Bilirubin - Negative Bedside Urine Ketone - Negative Urine Specific [place] 1.030 Bedside Urine Occult Blood +/- Bedside Urine pH 5.0 Bedside Urine Protein + 30 Bedside Urine Urobilinogen - Negative Bedside Urine Nitrite - Negative Bedside Urine Leukocytes - Negative Esterase MDM Narrative Medical decision making narrative: Patient is calm and cooperative. Is voluntary. Not intoxicated. He is seeking voluntary inpatient treatment. Patient will remain in the emergency department overnight. Social work consult placed. Patient is medically cleared. Care turned over to day provider to follow-up and disposition. Discharge Plan Departure Clinical Impression: Depression, Suicidal ideation Prescriptions: No Action hydroxyzine HCl 50 mg tablet 50 mg PO DAILY amlodipine 10 mg tablet 10 mg PO DAILY escitalopram oxalate 10 mg tablet 20 mg PO DAILY Referrals: Button,Caro C, PA-C [Primary Care Provider] -
[2021-10-24 21:51] LABS: Thyroid Stimulating Hormone 10.7 uIU/mL (0.47-4.68)
[2021-10-24 22:29] LABS: HEMOLYSIS < 15 (0-50)
[2021-10-24] MEDS: hydrOXYzine pamoate 25 MG CAPSULE 100 MG PO (23:12)
[2021-10-25 06:32] LABS: COVID19 -Nasal RAPID Negative (Negative)
--- NOTE | 2021-10-25 08:32 | PC.NURSE ---
gave patient fresh coffee as requested
[2021-10-25 08:34] VITALS: BP 129/92; PULSE 74; RESP 16; TEMP 36.6; O2SAT 97
--- NOTE | 2021-10-25 11:45 | PC.NURSE ---
patient talking with MARBLE MACHINE OPERATOR in room
[2021-10-25 12:48] VITALS: BP 122/78; PULSE 70; RESP 14; O2SAT 99
--- NOTE | 2021-10-25 13:46 | CM.SWNOTE ---
Patient is a 56 yo male who was admitted to [facility] ED on 10/24/21 for Suicidal Ideation. Pt has [facility] and [facility] for insurance and his PCP is Caro Richards at [facility]. EMR was reviewed. Per ED MD, BUGGY LADLE TENDER Consult placed due to pt's suicidal ideation but no plan and voluntarily requesting support or tx. SW called [facility] in [place] and they may have MH stabilization beds after 1400 today and requested BUGGY LADLE TENDER call back. BUGGY LADLE TENDER called [facility] and they state pt has been to their stabilization facility twice in the past month and just discharged yesterday 10/24/21 on the same day pt admitted to the ED. [facility] triage states pt has typically remained in his room for the 5 days of stabilization and does not participate in their activities or crisis planning and has refused their resources for [facility] or outpt f/u and seems to arrive at their facility more for situational/environmental needs of not having a place to stay rather than mental health needs and have not felt that Inpt MH tx has been needed. BUGGY LADLE TENDER met bedside with pt in the ED and he confirms he was feeling suicidal with no plan on admission last night but the overnight stay in the ED has helped reduce his anxiety and suicidal ideation and pt denies any current S.I. Pt very talkative about his long hx of drug abuse and family hx of drug abuse along with a long hx of grief from friends dying, his mother a couple years ago, and recently young family members dying from fentanyl overdoses. Pt confirms he remains sober for the past few months (UDS+ only for THC) and has a Sponsor and his plan is to contact [facility] again for housing and plans to really look into [facility] again as he had utilized these services and then relapsed before and therefore he is aware of his triggers and medical terminologist needs. 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 Pt is goal oriented, has some insight, was aware he had increased anxiety and stress last night after getting in an argument with family once he realized they were using drugs but is now stable and denies any SW needs. Pt is agreeable with d/c today after lunch. BUGGY LADLE TENDER updated RN and ED MD and in agreement that pt is safe for d/c back to the community and aware of the community resources available. LIV Tubbs
== END 2021-10-25 12:49 | disposition home or self-care (01) ==
PROVIDERS: Emergency Medicine; Emergency Provider Emergency Medicine; Family Provider Internal Medicine Nephrology; PCP Physician Assistant
DX: F32.A Depression, unspecified (principal); R45.851 Suicidal ideations; Z20.822 Contact with and (suspected) exposure to COVID-19
CPT/HCPCS: 80053; 80305; 80320; 80329; 81003; 81015; 84439; 84443; 85025; 87635; 99284; C9803; G0480